=== PATIENT | female | born 1995 | race African-American/Black ===

== ENCOUNTER 2021-01-14 10:42 | Emergency (ER) | payer BC ==
[~2021-01-14] VITALS: Ht 160 cm; Wt 52.6 kg
[2021-01-14 10:53] VITALS: BP 140/68
--- NOTE | 2021-01-14 10:54 | NUR ---
DR PLUNKETT AT THE BEDSIDE
--- NOTE | 2021-01-14 10:58 | NUR ---
THE PATIENT BIBS FOR "LUMP" IN LEFT BREAST. DENIES PAIN AT THIS TIME. NO RENDESS/DISCOLORATION NOTED. DENIES TRAUMA. IN ROOM AIR AND DENIES SOB. RESPIRATION REGULAR AND UNLABORED. WILL CONTINUE TO MONITOR THE PATIENT.
--- NOTE | 2021-01-14 11:32 | NUR ---
X-RAY TECH AT THE BEDSIDE
[2021-01-14] MEDS ORDERED: NAPR-1192 PO (11:50)
--- NOTE | 2021-01-14 12:03 | NUR ---
Patient discharged to home in stable condition. Written and verbal after care instructions given. Patient verbalizes understanding of instruction.
== END 2021-01-14 12:04 | disposition home or self-care (01) ==
LOC: ER 10:52
DX: R07.89 Other chest pain (principal); Z60.2 Problems related to living alone; Z79.899 Other long term (current) drug therapy
CPT/HCPCS: 71045-TC